=== PATIENT | male | born 1945 | race Caucasian/White ===

== ENCOUNTER 2019-05-30 18:16 | Inpatient (IN) | payer MEDICARE ==
[~2019-05-30] VITALS: Ht 172.7 cm; Wt 63.6 kg
[2019-05-30] MEDS: diatr meglu/diatrizoate 30ml oral sol.-(3 dose) bottle PO SCH ×2 (02:00→23:49)
--- NOTE | 2019-05-30 20:00 | NUR ---
Pt from [facility] and unable to provide history. Pt states he does not know where he is when asked. Could not update medical history at this time.
[2019-05-30] MEDS ORDERED: haloperidol lactate 5mg/ml inj IM ONE ×3 (21:50→22:35)
[2019-05-30] MEDS ORDERED: ringers solution, lacted 1,000 ML IV ONE (21:55)
[2019-05-30] MEDS ORDERED: mag hydrox/Alum hydrox/simeth 30ml oral suspension PO PRN (22:25)
[2019-05-30] MEDS ORDERED: potassium CL 10mEq/100ml bag 100 ML IV PRN ×2 (22:25)
[2019-05-30] MEDS ORDERED: magnesium 4gm in 100ml NS 100 ML IV PRN (22:25)
[2019-05-30] MEDS ORDERED: potassium Cl 20 mEq SR tablet PO PRN ×2 (22:25)
[2019-05-30] MEDS ORDERED: acetaminophen 325mg tablet PO PRN (22:25)
[2019-05-30] MEDS ORDERED: ondansetron/PF 4mg/2ml inj IV PRN (22:25)
[2019-05-30] MEDS ORDERED: magnesium 2GM in 50ml NS 50 ML IV PRN (22:25)
[2019-05-30 22:27] LABS: BASOPHILS # (AUTO) 0.1 X10'3 (0-0.2); BASOPHILS % (AUTO) 1.2 % (0-1); EOSINOPHILS # (AUTO) 0.2 X10'3 (0-0.9); EOSINOPHILS % (AUTO) 2.9 % (0-6); HEMATOCRIT 38.4 % (42.0-52.0); HEMOGLOBIN 13.5 g/dl (14.0-17.9); LYMPHOCYTES # (AUTO) 1.3 X10'3 (1.1-4.8); LYMPHOCYTES % (AUTO) 19.1 % (21-51); MEAN CORPUSCULAR HGB CONC 35.1 g/dL (33.0-36.5); MEAN CORPUSCULAR VOLUME 88.4 FL (78-98); MEAN PLATELET VOLUME 9.3 FL (7.4-10.4); MONOCYTES # (AUTO) 0.7 X10'3 (0-0.9); MONOCYTES % (AUTO) 10.6 % (2-12); NEUTROPHILS # (AUTO) 4.6 X10'3 (1.8-7.7); NEUTROPHILS % (AUTO) 66.2 % (42-75); PLATELET COUNT 227 X10'3 (140-440); RED BLOOD COUNT 4.34 X10'6 (4.70-6.10); WHITE BLOOD COUNT 6.9 X10'3 (4.5-11.0)
[2019-05-30 22:41] LABS: ALANINE AMINOTRANSFERASE 33 U/L (12-78); ALBUMIN/GLOBULIN RATIO 0.8 (1.1-1.5); ALKALINE PHOSPHATASE 125 IU/L (46-116); ANION GAP 9 (8-16); ASPARTATE AMINO TRANSFERASE 26 U/L (10-37); BILIRUBIN,TOTAL 0.7 MG/DL (0.1-1.0); BLOOD UREA NITROGEN 22 MG/DL (7-18); BUN/CREATININE RATIO 21.2 (5.4-32.0); CALCIUM 9.2 MG/DL (8.5-10.1); CHLORIDE 103 MMOL/L (99-107); CREATININE 1.04 MG/DL (0.60-1.10); GLUCOSE 149 MG/DL (70-104); POTASSIUM 3.9 MMOL/L (3.5-5.1); SODIUM 141 MMOL/L (135-145); TOTAL CARBON DIOXIDE 29.5 MMOL/L (24-32); TOTAL PROTEIN 6.8 G/DL (6.4-8.2); eGFR 70 ML/MIN
[2019-05-30 23:30] VITALS: BP 132/67
--- NOTE | 2019-05-30 23:40 | NUR ---
Received report from ER nurse Alea. Will assume patient care.
[2019-05-30] MEDS: normal saline 1000ml 1,000 ML IV SCH (23:49)
[2019-05-31] MEDS ORDERED: haloperidol lactate 5mg/ml inj IM PRN (00:10)
[2019-05-31] MEDS ORDERED: ziprasidone IM 20mg inj **IM only IM PRN (00:55)
--- NOTE | 2019-05-31 02:20 | NUR ---
Patient has orders for a NG. Patient not cooperative with taking his PO contrast. @0120-Patient given Geodon for agitation and to relax/calm him before inserting the NG. @0220-Patient did not tolerated the NG well. 3 security officers, 2 nurse and charge nurse was in the room. Patient scream, cough, spit in the staff. NG was advanced and not in the right location. Patient in agreement to taking the contrast PO. No NG placed.
--- NOTE | 2019-05-31 05:20 | NUR ---
Patient has not voided. Bladder scan this morning show 340ml. Will continue with care and monitor. Am nurse will be inform to monitor.
[2019-05-31] MEDS ORDERED: glucagon, human recombinant 1mg kit SUBCUT PRN (05:25)
[2019-05-31] MEDS ORDERED: insulin Lispro (HumaLOG) vial - multi-dose SQ SCH (05:25)
[2019-05-31] MEDS ORDERED: dextrose ORAL solution 15 GM/59 ML bottle PO PRN ×2 (05:25)
[2019-05-31] MEDS ORDERED: dextrose 50%-water 50ml dispensing syringe IV PRN ×2 (05:25)
[2019-05-31] MEDS ORDERED: MESSAGE TO PHARMACY PO ONE (05:25)
--- NOTE | 2019-05-31 05:30 | NUR ---
Dr. Chavez notifed of unsuccessful attempt of inserting the NG.
[2019-05-31] MEDS ORDERED: APIX5TAB3 PO (05:59)
[2019-05-31] MEDS ORDERED: MELA10CA2 PO (05:59)
[2019-05-31] MEDS ORDERED: CARV3.12 PO (05:59)
[2019-05-31] MEDS ORDERED: ISOS60TA4 PO (05:59)
[2019-05-31] MEDS ORDERED: DOCU100C40 PO (05:59)
[2019-05-31] MEDS ORDERED: INSU100V9 SQ (05:59)
[2019-05-31] MEDS ORDERED: FLUT1BLS3 (05:59)
[2019-05-31] MEDS ORDERED: INSU200I SQ (05:59)
[2019-05-31] MEDS ORDERED: FURO40TA4 PO (05:59)
[2019-05-31] MEDS ORDERED: ATOR40TA71 PO (05:59)
[2019-05-31] MEDS ORDERED: ASPI-611 PO (05:59)
[2019-05-31] MEDS ORDERED: SACU1TAB PO (05:59)
[2019-05-31] MEDS ORDERED: ACET-1008 PO (06:11)
[2019-05-31] MEDS ORDERED: RISP0.5T74 PO (06:11)
[2019-05-31] MEDS ORDERED: FLO0.4C PO (06:11)
[2019-05-31] MEDS ORDERED: NITR0.4T51 SL (06:11)
[2019-05-31] MEDS ORDERED: POTA20TA19 PO (06:11)
--- NOTE | 2019-05-31 06:56 | NUR ---
Problems reprioritized. Patient report given, questions answered & plan of care reviewed with Jadiel DILL.
[2019-05-31 08:00] VITALS: BP 123/78
[2019-05-31] MEDS: K and/or MAG REPLACEMENT MC SCH ×2 (08:00→20:00)
[2019-05-31 09:23] LABS: BASOPHILS % (AUTO) 0.6 % (0-1); EOSINOPHILS # (AUTO) 0.2 X10'3 (0-0.9); EOSINOPHILS % (AUTO) 2.5 % (0-6); HEMATOCRIT 33.4 % (42.0-52.0); HEMOGLOBIN 11.6 g/dl (14.0-17.9); LYMPHOCYTES # (AUTO) 0.9 X10'3 (1.1-4.8); LYMPHOCYTES % (AUTO) 11.7 % (21-51); MEAN CORPUSCULAR HEMOGLOBIN 30.9 PG (27.0-31.0); MEAN CORPUSCULAR HGB CONC 34.8 g/dL (33.0-36.5); MEAN CORPUSCULAR VOLUME 88.9 FL (78-98); MEAN PLATELET VOLUME 9.5 FL (7.4-10.4); MONOCYTES # (AUTO) 0.8 X10'3 (0-0.9); MONOCYTES % (AUTO) 10.1 % (2-12); NEUTROPHILS # (AUTO) 5.6 X10'3 (1.8-7.7); NEUTROPHILS % (AUTO) 75.1 % (42-75); PLATELET COUNT 185 X10'3 (140-440); RED BLOOD COUNT 3.76 X10'6 (4.70-6.10); RED CELL DISTRIBUTION WIDTH 14.7 % (11.5-14.5); WHITE BLOOD COUNT 7.5 X10'3 (4.5-11.0)
[2019-05-31] MEDS: diatr meglu/diatrizoate 30ml oral sol.-(3 dose) bottle PO SCH ×2 (09:39→13:21)
[2019-05-31 09:41] LABS: ALANINE AMINOTRANSFERASE 25 U/L (12-78); ALBUMIN 2.4 G/DL (3.4-5.0); ALBUMIN/GLOBULIN RATIO 0.8 (1.1-1.5); ALKALINE PHOSPHATASE 106 IU/L (46-116); ANION GAP 13 (8-16); ASPARTATE AMINO TRANSFERASE 27 U/L (10-37); BILIRUBIN,TOTAL 0.6 MG/DL (0.1-1.0); BLOOD UREA NITROGEN 24 MG/DL (7-18); BUN/CREATININE RATIO 22.2 (5.4-32.0); CALCIUM 8.2 MG/DL (8.5-10.1); CHLORIDE 106 MMOL/L (99-107); CREATININE 1.08 MG/DL (0.60-1.10); GLUCOSE 174 MG/DL (70-104); MAGNESIUM 1.8 MG/DL (1.5-2.4); POTASSIUM 3.6 MMOL/L (3.5-5.1); SODIUM 143 MMOL/L (135-145); TOTAL CARBON DIOXIDE 23.8 MMOL/L (24-32); TOTAL PROTEIN 5.5 G/DL (6.4-8.2); eGFR 67 ML/MIN
[2019-05-31] MEDS: normal saline 1000ml 1,000 ML IV SCH (09:41)
[2019-05-31] MEDS: enoxaparin 40mg/0.4ml syringe SQ SCH (09:43)
[2019-05-31 11:00] VITALS: BP 111/54
[2019-05-31] MEDS ORDERED: acetaminophen 325mg tablet PO PRN (14:55)
[2019-05-31] MEDS ORDERED: nitroGLYCERIN 0.4mg SUBLingual tab SL PRN (14:55)
[2019-05-31] MEDS ORDERED: albuterol 2.5 MG/3 ML nebule NEB PRN (15:05)
[2019-05-31] MEDS ORDERED: INSULIN LISPRO 1 UNIT SQ SCH (17:00)
[2019-05-31 18:00] VITALS: BP 104/54
--- NOTE | 2019-05-31 18:45 | NUR ---
Patient in room [facility]. I have received report from ANIYAH Duvall and had the opportunity to ask questions and assume patient care.
[2019-05-31] MEDS: budesonide 0.5mg/2ml UD nebule IH SCH (20:35)
[2019-05-31] MEDS ORDERED: insulin glargine (Lantus) pen - multi-dose SQ SCH (21:00)
[2019-05-31] MEDS ORDERED: risperiDONE 0.5mg tablet PO SCH (21:00)
[2019-05-31] MEDS ORDERED: INSULIN GLARGINE HUM REC ANLOG 35 UNIT SQ SCH (21:00)
[2019-05-31] MEDS ORDERED: Melatonin 3mg tablet PO SCH (21:00)
[2019-05-31] MEDS: apixaban 5mg tablet PO SCH (21:23)
[2019-05-31] MEDS: aspirin 81mg tablet.DR PO SCH (21:24)
[2019-05-31] MEDS: atorvastatin 20mg tablet PO SCH (21:24)
[2019-05-31] MEDS: carVEDilol 3.125mg tablet PO SCH (21:25)
[2019-05-31] MEDS: furosemide 40mg tablet PO SCH (21:25)
[2019-05-31] MEDS: sacubitril/valsartan 24mg-26mg tablet PO SCH (21:26)
[2019-06-01] VITALS: BP 144/54
--- NOTE | 2019-06-01 01:43 | NUR ---
Bladder scanned pt, total of 245 mL in bladder.
[2019-06-01] MEDS: normal saline 1000ml 1,000 ML IV SCH ×3 (02:01→10:06)
--- NOTE | 2019-06-01 06:20 | NUR ---
Problems reprioritized. Patient report given, questions answered & plan of care reviewed with ANIYAH Posada.
[2019-06-01 08:00] VITALS: BP 107/56
[2019-06-01] MEDS ORDERED: isosorbide mononitrate 30mg tab.SR.24H PO SCH (08:00)
[2019-06-01] MEDS ORDERED: docusate sod 100mg capsule PO SCH (08:00)
[2019-06-01] MEDS ORDERED: potassium Cl 20 mEq SR tablet PO SCH (08:00)
[2019-06-01] MEDS: K and/or MAG REPLACEMENT MC SCH (08:00)
[2019-06-01] MEDS ORDERED: tamsulosin 0.4mg capsule PO SCH (08:00)
[2019-06-01] MEDS: budesonide 0.5mg/2ml UD nebule IH SCH (08:00)
[2019-06-01] MEDS: enoxaparin 40mg/0.4ml syringe SQ SCH (08:12)
[2019-06-01] MEDS: aspirin 81mg tablet.DR PO SCH (08:13)
[2019-06-01] MEDS: carVEDilol 3.125mg tablet PO SCH (08:13)
[2019-06-01] MEDS: atorvastatin 20mg tablet PO SCH (08:16)
[2019-06-01] MEDS: apixaban 5mg tablet PO SCH (08:16)
--- NOTE | 2019-06-01 08:29 | NUR ---
Patient refused SVN tx @ this time. No Shortness of breath noted. Addendum: 06/01/19 at 0829 by Kaitlin Tobias RT Amended: Links added.
[2019-06-01] MEDS: furosemide 40mg tablet PO SCH (10:07)
[2019-06-01] MEDS: sacubitril/valsartan 24mg-26mg tablet PO SCH (10:07)
[2019-06-01 10:20] LABS: BASOPHILS % (AUTO) 0.6 % (0-1); EOSINOPHILS # (AUTO) 0.4 X10'3 (0-0.9); EOSINOPHILS % (AUTO) 7.3 % (0-6); HEMATOCRIT 33.8 % (42.0-52.0); HEMOGLOBIN 11.8 g/dl (14.0-17.9); LYMPHOCYTES # (AUTO) 1.2 X10'3 (1.1-4.8); LYMPHOCYTES % (AUTO) 19.7 % (21-51); MEAN CORPUSCULAR HEMOGLOBIN 31.3 PG (27.0-31.0); MEAN CORPUSCULAR HGB CONC 34.8 g/dL (33.0-36.5); MEAN PLATELET VOLUME 9.7 FL (7.4-10.4); MONOCYTES # (AUTO) 0.5 X10'3 (0-0.9); MONOCYTES % (AUTO) 7.4 % (2-12); PLATELET COUNT 197 X10'3 (140-440); RED BLOOD COUNT 3.76 X10'6 (4.70-6.10); RED CELL DISTRIBUTION WIDTH 14.7 % (11.5-14.5); WHITE BLOOD COUNT 6.1 X10'3 (4.5-11.0)
[2019-06-01 10:33] LABS: ALANINE AMINOTRANSFERASE 22 U/L (12-78); ALBUMIN 2.3 G/DL (3.4-5.0); ALBUMIN/GLOBULIN RATIO 0.7 (1.1-1.5); ALKALINE PHOSPHATASE 89 IU/L (46-116); ANION GAP 5 (8-16); ASPARTATE AMINO TRANSFERASE 20 U/L (10-37); BILIRUBIN,TOTAL 0.4 MG/DL (0.1-1.0); BLOOD UREA NITROGEN 18 MG/DL (7-18); BUN/CREATININE RATIO 16.5 (5.4-32.0); CALCIUM 7.8 MG/DL (8.5-10.1); CHLORIDE 107 MMOL/L (99-107); CREATININE 1.09 MG/DL (0.60-1.10); GLUCOSE 230 MG/DL (70-104); MAGNESIUM 1.8 MG/DL (1.5-2.4); POTASSIUM 3.5 MMOL/L (3.5-5.1); SODIUM 140 MMOL/L (135-145); TOTAL CARBON DIOXIDE 27.6 MMOL/L (24-32); TOTAL PROTEIN 5.4 G/DL (6.4-8.2); eGFR 66 ML/MIN
[2019-06-01 11:00] VITALS: BP 100/55
--- NOTE | 2019-06-01 11:42 | NUR ---
Pt with hx T2DM with current A1c 8.7. DM education not appropriate at this time as pt documented as confused and A/O x1. Per H&P pt resides at [facility]. Likely that patient's DM is being managed by the facility. Will continue to follow. Addendum: 06/01/19 at [address] Amended: Links added.
--- NOTE | 2019-06-01 16:40 | NUR ---
Patient discharged into the care of son and DANN Emerson. Patient discharge instructions were given to DANN and a copy of medications was provided for the SNF patient was returning to. Report was called to Traci walker regarding any changes which they were updated that nothing has changed regarding medications as well as when to resume normal medications. Patient alert, oriented, and appropriate for discharge. Left with all belongings, IV's removed. No tele.
[2019-06-02] MEDS ORDERED: FLU VACC QS2019-20 36MOS UP/PF 60 MCG/0.5 ML SYRINGE IMVAC ONE (10:00)
[2019-06-02] MEDS ORDERED: pneumococcal 23-VAL P-sac vacc 25 mcg/0.5ml vial IMVAC ONE (10:00)
== END 2019-06-01 16:44 | DRG 389 ==
LOC: ER 18:17 → ED HOLD 22:45 → SUR 3N 23:10
PROVIDERS: ADMIT Family Medicine; ATTEND Family Medicine
PROC: 3E0234Z Introduction of Serum, Toxoid and Vaccine into Muscle, Percutaneous Approach (ICD-10-PCS; principal; 2019-06-01)
DX: K56.609 Unspecified intestinal obstruction, unspecified as to partial versus complete obstruction (principal); I48.20 Chronic atrial fibrillation, unspecified; F03.91 Unspecified dementia, unspecified severity, with behavioral disturbance; R18.8 Other ascites; E11.9 Type 2 diabetes mellitus without complications; I50.9 Heart failure, unspecified; Z79.82 Long term (current) use of aspirin; Z79.01 Long term (current) use of anticoagulants; Z79.899 Other long term (current) drug therapy; Z79.4 Long term (current) use of insulin; Z23 Encounter for immunization
CPT/HCPCS: 36415; 74176; 80053; 82948; 83036; 83735; 85025; 87081; 94640; 94760; 96372; 99285; G0378; J1630; J1650; J1815; J3486; J7030; J7120; J7626; Q9963

== ENCOUNTER 2020-11-03 03:11 | Emergency (ER) | payer MEDICARE ==
[~2020-11-03] VITALS: Ht 170.2 cm; Wt 63.6 kg
[~2020-11-03 03:11] MED LIST: ACET-1008 PO; APIX5TAB3 PO; ASPI-611 PO; ATOR40TA71 PO; CARV3.12 PO; DOCU100C40 PO; FLO0.4C PO; FLUT1BLS3; FURO40TA4 PO; INSU100V9 SQ; INSU200I SQ; ISOS60TA71 PO; MELA10CA2 PO; NITR0.4T51 SL; POTA20TA19 PO; RISP0.5T74 PO; SACU1TAB PO
--- NOTE | 2020-11-03 03:33 | NUR ---
Patient back from CT
[2020-11-03] MEDS ORDERED: human prothrombin complex-PCC 500 UNIT/20 ML VIAL IV ONE (03:40)
[2020-11-03] MEDS ORDERED: niCARDipine-NS 40mg/200ml IVPB 200 ML IV PRN (03:50)
[2020-11-03 04:04] LABS: BASOPHILS # (AUTO) 0.1 X10'3 (0-0.2); BASOPHILS % (AUTO) 0.9 % (0-1); EOSINOPHILS # (AUTO) 0.1 X10'3 (0-0.9); EOSINOPHILS % (AUTO) 1.5 % (0-6); HEMOGLOBIN 11.1 g/dl (14.0-17.9); LYMPHOCYTES # (AUTO) 0.9 X10'3 (1.1-4.8); LYMPHOCYTES % (AUTO) 14.3 % (21-51); MEAN CORPUSCULAR HEMOGLOBIN 32.8 PG (27.0-31.0); MEAN CORPUSCULAR HGB CONC 34.8 g/dL (33.0-36.5); MEAN CORPUSCULAR VOLUME 94.1 FL (78-98); MEAN PLATELET VOLUME 9.8 FL (7.4-10.4); MONOCYTES # (AUTO) 0.6 X10'3 (0-0.9); MONOCYTES % (AUTO) 9.3 % (2-12); NEUTROPHILS # (AUTO) 4.4 X10'3 (1.8-7.7); PLATELET COUNT 130 X10'3 (140-440)
[2020-11-03 04:16] LABS: PARTIAL THROMBOPLASTIN TIME 29 SECONDS (22-32)
[2020-11-03 04:18] LABS: ALANINE AMINOTRANSFERASE 19 U/L (12-78); ALBUMIN 3.3 G/DL (3.4-5.0); ALKALINE PHOSPHATASE 70 IU/L (46-116); ANION GAP 6 (8-16); ASPARTATE AMINO TRANSFERASE 19 U/L (10-37); BILIRUBIN,TOTAL 0.4 MG/DL (0.1-1.0); BLOOD UREA NITROGEN 26 MG/DL (7-18); BUN/CREATININE RATIO 16.8 (5.4-32.0); CALCIUM 8.3 MG/DL (8.5-10.1); CHLORIDE 105 MMOL/L (99-107); CREATININE 1.55 MG/DL (0.60-1.10); GLUCOSE 164 MG/DL (70-104); POTASSIUM 3.6 MMOL/L (3.5-5.1); SODIUM 138 MMOL/L (135-145); TOTAL CARBON DIOXIDE 27.3 MMOL/L (24-32); TOTAL PROTEIN 6.7 G/DL (6.4-8.2); eGFR 44 ML/MIN
[2020-11-03 04:22] VITALS: BP 137/61
== END 2020-11-03 04:24 | disposition short-term general hospital (02) ==
LOC: ER 03:11
DX: S06.5X9A Traumatic subdural hemorrhage with loss of consciousness of unspecified duration, initial encounter (principal); Z20.822 Contact with and (suspected) exposure to COVID-19; F03.90 Unspecified dementia, unspecified severity, without behavioral disturbance, psychotic disturbance, mood disturbance, and anxiety; I48.91 Unspecified atrial fibrillation; Z79.01 Long term (current) use of anticoagulants; Z79.82 Long term (current) use of aspirin; Z79.4 Long term (current) use of insulin; Z79.899 Other long term (current) drug therapy; W19.XXXA Unspecified fall, initial encounter; Z91.81 History of falling; Y93.89 Activity, other specified; Y92.231 Patient bathroom in hospital as the place of occurrence of the external cause; Y99.8 Other external cause status
CPT/HCPCS: 36415; 70450; 72125; 80053; 85025; 85610; 85730; 86885; 86900; 86901; 87635; 96365; 99285; C9803